=== PATIENT | female | born 1945 | race Caucasian/White ===

== ENCOUNTER → 2023-09-19 11:34 | Outpatient (REF) | payer MEDICARE, SELFPAY | LOC: HWRAD 11:34 | PROVIDERS: ATTENDING PHYSICIAN Student in an Organized Health Care Education/Training Program | DX: R05.3 Chronic cough (principal) | CPT/HCPCS: 70491; 71250; Q9967 ==

== ENCOUNTER 2023-09-27 08:01 | Day surgery (SDC) | payer MEDICARE, SELFPAY ==
[2023-09-27] VITALS (13 sets, daily range): BP systolic 111–139; BP diastolic 51–105; BMI 27.2
[2023-09-27] MEDS: NSS 500 IV (08:20)
[2023-09-27 08:41] LABS: Hematocrit 37.7 % (37.0-47.0); Hemoglobin 12.6 g/dL (12.0-16.0); Mean Corp Hgb Conc. 33.4 g/dL (33.0-37.0); Mean Corpuscular Hgb 29.2 pg (27.0-31.0); Mean Corpuscular Volume 87.5 fL (81.0-99.0); Mean Platelet Volume 9.3 fL (7.4-10.4); Platelet Count 263 10^3/uL (130-400); Red Blood Cell Count 4.31 10^6/uL (4.20-5.40); Red Cell Dist. Width 12.9 % (11.5-14.5); White Blood Cell Count 13.6 10^3/uL (4.8-10.8)
[2023-09-27 08:51] LABS: INR 1.02; PT 13.4 Sec (11.4-14.6)
[2023-09-27 08:52] LABS: APTT 30.5 Sec (23.4-35.0)
--- NOTE | 2023-09-27 09:00 | PTCARENOTE ---
Respiratory therapist at pt bedside to administer nebulizer.
[2023-09-27] MEDS: DUONEB 3 ML INH (09:03)
--- NOTE | 2023-09-27 09:07 | PTCARENOTE ---
Pt is here for an arteriogram. Pt recently had a laryngospasm when they previously attempted to do this arteriogram and procedure was cancelled. Pt's H&P states pt was to see an ENT for previous laryngospasm prior to having this procedure done. Pt
states she was not able to get in to see ENT until October so she did not see one yet. Pt states she did have some chest and neck studies done though. Dr Woodward evaluated pt today prior to procedure and ordered a nebulizer. Pt also states she started
a prednisone dose pack this morning. Dr Woodward aware and stated ok to proceed with today's procedure. Will continue to monitor.
[2023-09-27 09:11] LABS: Blood Urea Nitrogen 25 mg/dl (7-17); Calcium 10.2 mg/dl (8.4-10.2); Carbon Dioxide 23 mmol/L (22-30); Chloride 100 mmol/L (98-107); Estimated Creatinine Clearance 42 ml/min; Glucose 153 mg/dl (70-99); Potassium 4.2 mmol/L (3.5-5.1); Sodium 137 mmol/L (135-145); eGFR > 60.00
--- NOTE | 2023-09-27 09:40 | W.SUR.PREOP ---
Pre-Operative Surgical Note
-
I have examined this patient prior to the performance of the scheduled procedure.
The patient's condition is unchanged from the time of the current History and
Physical and the patient is able to undergo the scheduled procedure.
--- NOTE | 2023-09-27 11:15 | W.SUR.POST ---
Surgical Immediate Post Op
Note
Pre Op Diagnosis: PAD
Post Op Diagnosis: PAD
Procedure Performed: RLE angiogram, right SFA balloon angioplasty/stent 5mmx 4cm zilver PTX, left femoral perclose
Primary Surgeon: Bobby
Anesthesia: local and sedation
Estimated Blood Loss: <2cc
Fluids: see anesthesia flow sheet
Drains/Shunts: none
Specimens/Cultures: none
Doppler/Duplex/Angio (Y/N): Y
Complications: none
Operative Findings: successful stent placement
--- NOTE | 2023-09-27 11:20 | W.PV.INTER ---
[facility] Note
Pre Admission Note
Functional Status: Light Work
Ambulation: Ambulate with Assistance
Pre Op Medications
Pre Op ASA: Yes
Pre Op Statin: Yes
Pre Op TERRIE Inhibitor/ARB: No
Pre Op P2y12 Antagonist: None
Pre Op Beta Blockers: No
Pre Op Chronic Anticoagulant: None
Pre Op Cilostazol: No
Post Op Medications
Post Op ASA: Yes
Post Op Statin: Yes
Post Op TERRIE Inhibitor/ARB: No
Post Op P2y12 Antagonist: Clopidogrel
Post Op Beta Blockers: No
Post Op Chronic Anticoagulant: None
Post Op Cilostazol: No
--- NOTE | 2023-09-27 11:42 | OR.RPT ---
Operative Report
Operative Report
PROCEDURE DATE: 09/27/2023
Preoperative diagnosis: Severe debilitating right lower extremity claudication, refractory to exercise therapy.
Postoperative diagnosis: Same
Procedure:
1. Duplex assisted left common femoral artery cannulation.
2. Aortogram and pelvic angiogram.
3. Right lower extremity arteriogram with third order vessel catheterization of right popliteal artery via left common femoral artery puncture.
4. Placement of Zilver PTX 5 mm x 4 cm self expanding drug-eluting stent right distal superficial femoral artery.
5. Left femoral angiogram with Perclose percutaneous suture closure.
6. Supervision and interpretation.
Surgeon: Bobby
Training Facilitator: None
Complications: None
Anesthesia: Local, sedation
Fluoroscopy:
9.1 min
32 mGy
6.05 Gy.cm2
Indications for procedure:
Patient with debilitating claudication. Risk/benefit/alternative arteriography were discussed. Patient understood all wish to proceed.
Description of procedure:
Patient was identified, brought to the operating room. Placed on the table in the supine position. After the adequate administration of anesthesia, the patient was prepped and draped in the standard surgical fashion. A standard preoperative
timeout was undertaken and everybody was in agreement with the plan.
The left common femoral artery was accessed with a micropuncture kit under direct duplex ultrasound guidance. A 5 [place] sheath was then advanced over a 0.035 inch wire, and a woody's hook catheter was advanced into the abdominal aorta.
Aortogram and pelvic angiogram was obtained. Findings as follows:
Infrarenal aorta: Distal infrarenal aorta only visualized (more proximal not visualized), but patent with no significant stenosis.
Right common iliac artery: Patent with no significant stenosis.
Right external iliac artery: Patent with no significant stenosis.
Left common iliac artery: Patent with no significant stenosis
Left external iliac artery: Patent with no significant stenosis.
Using a floppy angled hydrophilic wire, the right common femoral artery was cannulated and the catheter was advanced. Right lower extremity arteriogram was obtained. Findings as follows:
Common femoral artery:Patent with no significant stenosis
Profunda femoris artery:Patent with no significant stenosis
Superficial femoral artery: Proximal two thirds patent with no significant stenosis, in the midsegment there was some luminal irregularities but no significant stenosis. Distal third with severe string-like near occlusive stenosis.
Popliteal artery: Some mild luminal irregularities in the distal above-knee popliteal artery, but otherwise the popliteal artery was patent with no significant stenosis.
Anterior tibial artery: Patent with no definitive stenosis. But distal filling flow.
Tibial peroneal trunk: Patent with no significant stenosis.
Peroneal artery: Patent with no significant stenosis.
Posterior tibial artery:Patent proximally, somewhat diminutive in size. Distal filling slow.
At this point I selectively cannulated the right profunda femoris artery and then exchanged for a Storq wire and then an up and over 6 [place] sheath. The patient was given 5000's of intravenous heparin. Next using a flopping of hydrophilic wire
and a CXI catheter, I was able to cannulate the superficial femoral artery under roadmap assisted guidance. Then again using roadmap assisted guidance was able to traverse the severe stenosis in the SFA distally. I then advanced my catheter and
wire into the popliteal artery. Angiogram confirmed I was in the true lumen. I then used a Cook Zilver PTX 5 mm x 4 cm drug-eluting stent. This was deployed across the area of severe stenosis. I then post angioplastied this with a 4 mm balloon.
Completion angiogram demonstrated excellent result with no residual stenosis. Good filling into the runoff. I could see better of the runoff now. There was still distal slow filling likely due to vasospasm in the foot or intrinsic foot disease.
The posterior tibial artery was very diminutive in size. But all 3 vessels appeared patent at least to the ankle.
At this point I then withdrew my sheath to the right common iliac artery and performed angiogram to confirm no stenosis in the iliac inflow. Next I withdrew my sheath to the left external iliac artery and performed a femoral angiogram on the left
side demonstrating good puncture in the left common femoral artery. I therefore then exchanged out over the wire my sheath for the [employer] Perclose percutaneous suture. This was then deployed in the standard fashion and the suture knot slip noted
down to the artery and tightened with a knot pusher. The knot was then locked. Hemostasis was achieved. In addition manual pressure was applied gently for 5 to 10 minutes. Complete hemostasis was noted.
The patient tolerated procedure well. Upon completion she had an easily palpable 2+ right posterior tibial artery pulse.
[2023-09-27] MEDS: PLAVIX 300 MG PO (12:05)
== END 2023-09-27 14:56 | disposition home or self-care (01) ==
LOC: CATH 08:01
PROVIDERS: ATTENDING PHYSICIAN Surgery Vascular Surgery; FAMILY PHYSICIAN Student in an Organized Health Care Education/Training Program; OTHER PHYSICIAN Internal Medicine Cardiovascular Disease
DX: I70.211 Atherosclerosis of native arteries of extremities with intermittent claudication, right leg (principal); Z72.0 Tobacco use; C91.10 Chronic lymphocytic leukemia of B-cell type not having achieved remission; J45.909 Unspecified asthma, uncomplicated
CPT/HCPCS: 37226; 37224; 75625; 75716; 76937; 80048; 85027; 85610; 85730; 86850; 86900; 86901; 94640; C1725; C1760; C1769; C1874; C1887; C1894; Q9967

== ENCOUNTER → 2023-11-02 14:05 | Outpatient (REF) | payer MEDICARE, SELFPAY | LOC: RAD 14:05 | PROVIDERS: ATTENDING PHYSICIAN Surgery Vascular Surgery | DX: I73.9 Peripheral vascular disease, unspecified (principal) | CPT/HCPCS: 93922; 93925 ==

== ENCOUNTER → 2023-11-15 08:11 | Outpatient (REF) | payer MEDICARE, SELFPAY ==
[2023-11-15 09:40] LABS: ALT (SGPT) 20 U/L (0-35); AST (SGOT) 26 U/L (14-36); Albumin 4.1 g/dl (3.5-5.0); Alkaline Phosphatase 89 U/L (38-126); Blood Urea Nitrogen 21 mg/dl (7-17); Calcium 9.7 mg/dl (8.4-10.2); Carbon Dioxide 27 mmol/L (22-30); Chloride 103 mmol/L (98-107); Glucose 107 mg/dl (70-99); HDL Cholesterol 58 mg/dl; LDL Cholesterol, Calculated 72 mg/dl; Potassium 4.4 mmol/L (3.5-5.1); Sodium 139 mmol/L (135-145); Total Bilirubin 0.3 mg/dl (0.2-1.3); Total Cholesterol 154 mg/dl (50-199); Total Protein 6.8 g/dl (6.3-8.2); Triglyceride 124 mg/dl (10-149); Very Low Density Lipoprotein 24 mg/dl (0-30); eGFR > 60.00
== END ==
LOC: REG 08:11
PROVIDERS: ATTENDING PHYSICIAN Student in an Organized Health Care Education/Training Program
DX: E78.2 Mixed hyperlipidemia (principal)
CPT/HCPCS: 36415; 80053; 80061

== ENCOUNTER → 2023-12-12 09:24 | Outpatient (REF) | payer MEDICARE, SELFPAY | LOC: RAD 09:24 | PROVIDERS: ATTENDING PHYSICIAN Student in an Organized Health Care Education/Training Program | DX: E04.1 Nontoxic single thyroid nodule (principal) | CPT/HCPCS: 76536 ==

== ENCOUNTER → 2023-12-13 07:16 | Outpatient (REF) | payer MEDICARE, SELFPAY ==
[2023-12-13 08:25] LABS: % Basophils 0.3 % (0-2); % Eosinophils 4.1 % (0-6); % Immature Granulocytes 0.1 % (0-0.5); % Lymphocytes 39.6 % (20.5-51.1); % Monocytes 7.6 % (1.7-9.3); % Neutrophils 48.3 % (42.2-75.2); Absolute Eosinophils 0.3 10^3/uL (0-0.7); Absolute Lymphocytes 2.9 10^3/uL (1.2-3.4); Absolute Monocytes 0.6 10^3/uL (0.1-0.6); Absolute Neutrophils 3.5 10^3/uL (1.4-6.5); Hematocrit 37.2 % (37.0-47.0); Hemoglobin 11.7 g/dL (12.0-16.0); Mean Corp Hgb Conc. 31.5 g/dL (33.0-37.0); Mean Corpuscular Hgb 27.8 pg (27.0-31.0); Mean Corpuscular Volume 88.4 fL (81.0-99.0); Mean Platelet Volume 9.4 fL (7.4-10.4); Nucleated Red Blood Cells % 0 %; Platelet Count 183 10^3/uL (130-400); Red Blood Cell Count 4.21 10^6/uL (4.20-5.40); Red Cell Dist. Width 13.3 % (11.5-14.5); White Blood Cell Count 7.3 10^3/uL (4.8-10.8)
[2023-12-13 09:47] LABS: LDH 190 U/L (120-246)
[2023-12-14 00:50] LABS: IgG 1143 mg/dl (700-1600)
== END ==
LOC: REG 07:16
PROVIDERS: ATTENDING PHYSICIAN Internal Medicine Hematology & Oncology
DX: C91.11 Chronic lymphocytic leukemia of B-cell type in remission (principal)
CPT/HCPCS: 36415; 82784; 83615; 85025

== ENCOUNTER → 2024-02-26 07:04 | Outpatient (REF) | payer MEDICARE, SELFPAY ==
[2024-02-26 08:52] LABS: % Basophils 0.4 % (0-2); % Eosinophils 3.1 % (0-6); % Immature Granulocytes 0.2 % (0-0.5); % Lymphocytes 36.4 % (20.5-51.1); % Monocytes 8.9 % (1.7-9.3); Absolute Eosinophils 0.3 10^3/uL (0-0.7); Absolute Monocytes 0.7 10^3/uL (0.1-0.6); Absolute Neutrophils 4.2 10^3/uL (1.4-6.5); Hematocrit 38.4 % (37.0-47.0); Hemoglobin 12.9 g/dL (12.0-16.0); Mean Corp Hgb Conc. 33.6 g/dL (33.0-37.0); Mean Corpuscular Hgb 28.5 pg (27.0-31.0); Mean Platelet Volume 9.8 fL (7.4-10.4); Nucleated Red Blood Cells % 0 %; Platelet Count 202 10^3/uL (130-400); Red Blood Cell Count 4.52 10^6/uL (4.20-5.40); Red Cell Dist. Width 14.3 % (11.5-14.5); White Blood Cell Count 8.2 10^3/uL (4.8-10.8)
[2024-02-26 09:32] LABS: Iron 76 ug/dl (37-170)
[2024-02-26 09:41] LABS: Percent Saturation 21 % (20-50); Total Iron Binding Capacity 359 ug/dl (265-497)
[2024-02-26 10:03] LABS: Ferritin 26.3 ng/ml (11.1-264.0)
[2024-02-26 10:34] LABS: Folate 15.8 ng/ml (2.76-20); Vitamin B12 686 pg/ml (239-931)
== END ==
LOC: REG 07:04
PROVIDERS: ATTENDING PHYSICIAN Internal Medicine Hematology & Oncology; FAMILY PHYSICIAN Student in an Organized Health Care Education/Training Program; REFERRING PHYSICIAN Physician Assistant
DX: C91.11 Chronic lymphocytic leukemia of B-cell type in remission (principal); D64.9 Anemia, unspecified
CPT/HCPCS: 36415; 82607; 82728; 82746; 83540; 83550; 85025

== ENCOUNTER → 2024-03-12 06:28 | Day surgery (SDC) | payer MEDICARE, SELFPAY | LOC: GI 06:28 | PROVIDERS: ATTENDING PHYSICIAN Internal Medicine | DX: K55.21 Angiodysplasia of colon with hemorrhage (principal); K57.30 Diverticulosis of large intestine without perforation or abscess without bleeding; D37.4 Neoplasm of uncertain behavior of colon; D12.8 Benign neoplasm of rectum; K62.1 Rectal polyp; K64.9 Unspecified hemorrhoids; D50.9 Iron deficiency anemia, unspecified; K29.80 Duodenitis without bleeding; K22.89 Other specified disease of esophagus; K44.9 Diaphragmatic hernia without obstruction or gangrene; K31.89 Other diseases of stomach and duodenum; K31.7 Polyp of stomach and duodenum | CPT/HCPCS: 45385; 45380; 43239; 88305; 88342 ==

== ENCOUNTER → 2024-05-14 07:55 | Outpatient (REF) | payer MEDICARE, SELFPAY | LOC: RAD 07:55 | PROVIDERS: ATTENDING PHYSICIAN Physician Assistant; FAMILY PHYSICIAN Student in an Organized Health Care Education/Training Program; REFERRING PHYSICIAN Surgery Vascular Surgery | DX: I73.9 Peripheral vascular disease, unspecified (principal) | CPT/HCPCS: 93922; 93925 ==

== ENCOUNTER → 2024-05-20 07:41 | Outpatient (REF) | payer MEDICARE, SELFPAY | LOC: WDC 07:41 | PROVIDERS: ATTENDING PHYSICIAN Obstetrics & Gynecology Gynecology | DX: Z12.31 Encounter for screening mammogram for malignant neoplasm of breast (principal) | CPT/HCPCS: 77063; 77067 ==

== ENCOUNTER 2024-05-23 06:20 | Day surgery (SDC) | payer MEDICARE, SELFPAY ==
[2024-05-23 11:18] VITALS: BMI 26.3
[2024-05-23 11:19] VITALS: BP 148/77
[2024-05-23 12:45] VITALS: BP 141/60
[2024-05-23 13:00] VITALS: BP 152/61
== END 2024-05-23 13:20 | disposition home or self-care (01) ==
LOC: SDS 06:20
PROVIDERS: ATTENDING PHYSICIAN Internal Medicine Gastroenterology
DX: C20 Malignant neoplasm of rectum (principal); D12.7 Benign neoplasm of rectosigmoid junction; K57.30 Diverticulosis of large intestine without perforation or abscess without bleeding; K64.0 First degree hemorrhoids
CPT/HCPCS: 45349; 88305

== ENCOUNTER → 2024-05-27 08:44 | Outpatient (REF) | payer MEDICARE, SELFPAY ==
[2024-05-27 10:07] LABS: % Basophils 0.2 % (0-2); % Eosinophils 3.4 % (0-6); % Immature Granulocytes 0.2 % (0-0.5); % Lymphocytes 41.5 % (20.5-51.1); % Monocytes 7.6 % (1.7-9.3); % Neutrophils 47.1 % (42.2-75.2); Absolute Eosinophils 0.3 10^3/uL (0-0.7); Absolute Lymphocytes 3.4 10^3/uL (1.2-3.4); Absolute Monocytes 0.6 10^3/uL (0.1-0.6); Absolute Neutrophils 3.9 10^3/uL (1.4-6.5); Hematocrit 36.6 % (37.0-47.0); Hemoglobin 11.8 g/dL (12.0-16.0); Mean Corp Hgb Conc. 32.2 g/dL (33.0-37.0); Mean Corpuscular Hgb 27.6 pg (27.0-31.0); Mean Corpuscular Volume 85.5 fL (81.0-99.0); Mean Platelet Volume 9.5 fL (7.4-10.4); Nucleated Red Blood Cells % 0 %; Platelet Count 196 10^3/uL (130-400); Red Blood Cell Count 4.28 10^6/uL (4.20-5.40); White Blood Cell Count 8.3 10^3/uL (4.8-10.8)
[2024-05-27 10:51] LABS: Iron 56 ug/dl (37-170)
[2024-05-27 11:02] LABS: Percent Saturation 17 % (20-50); Total Iron Binding Capacity 329 ug/dl (265-497)
== END ==
LOC: REG 08:44
PROVIDERS: ATTENDING PHYSICIAN Internal Medicine Hematology & Oncology; FAMILY PHYSICIAN Student in an Organized Health Care Education/Training Program
DX: C91.11 Chronic lymphocytic leukemia of B-cell type in remission (principal)
CPT/HCPCS: 36415; 83540; 83550; 85025

== ENCOUNTER → 2024-06-07 11:23 | Outpatient (REF) | payer MEDICARE, SELFPAY ==
[2024-06-07 13:54] LABS: CEA 1.58 ng/ml
== END ==
LOC: REG 11:23
PROVIDERS: ATTENDING PHYSICIAN Surgery; FAMILY PHYSICIAN Student in an Organized Health Care Education/Training Program
DX: C20 Malignant neoplasm of rectum (principal)
CPT/HCPCS: 36415; 82378

== ENCOUNTER → 2024-06-13 11:33 | Outpatient (REF) | payer OTHER, SELFPAY ==
[2024-06-13 14:04] LABS: ALT (SGPT) 25 U/L (0-35); AST (SGOT) 33 U/L (14-36); Albumin 4.6 g/dl (3.5-5.0); Alkaline Phosphatase 84 U/L (38-126); Blood Urea Nitrogen 19 mg/dl (7-17); Calcium 9.7 mg/dl (8.4-10.2); Carbon Dioxide 26 mmol/L (22-30); Chloride 98 mmol/L (98-107); Glucose 108 mg/dl (70-99); Potassium 4.6 mmol/L (3.5-5.1); Sodium 139 mmol/L (135-145); Total Bilirubin 0.4 mg/dl (0.2-1.3); Total Protein 7.5 g/dl (6.3-8.2); eGFR > 60.00
== END ==
LOC: REG 11:33
PROVIDERS: ATTENDING PHYSICIAN Surgery; FAMILY PHYSICIAN Student in an Organized Health Care Education/Training Program
DX: C20 Malignant neoplasm of rectum (principal)
CPT/HCPCS: 36415; 80053

== ENCOUNTER → 2024-06-14 10:05 | Outpatient (REF) | payer OTHER, SELFPAY | LOC: RAD 10:05 | PROVIDERS: ATTENDING PHYSICIAN Surgery; FAMILY PHYSICIAN Student in an Organized Health Care Education/Training Program | DX: C20 Malignant neoplasm of rectum (principal) | CPT/HCPCS: 71260; 74177; Q9967 ==

== ENCOUNTER → 2024-06-19 06:18 | Day surgery (SDC) | payer OTHER, SELFPAY | LOC: GI 06:18 | PROVIDERS: ATTENDING PHYSICIAN Surgery | DX: Z08 Encounter for follow-up examination after completed treatment for malignant neoplasm (principal); K62.89 Other specified diseases of anus and rectum; C20 Malignant neoplasm of rectum; Z85.048 Personal history of other malignant neoplasm of rectum, rectosigmoid junction, and anus | CPT/HCPCS: 45330 ==

== ENCOUNTER → 2024-06-25 10:04 | Outpatient (REF) | payer OTHER, SELFPAY | LOC: MRI 3T 10:04 | PROVIDERS: ATTENDING PHYSICIAN Surgery; FAMILY PHYSICIAN Student in an Organized Health Care Education/Training Program | DX: C20 Malignant neoplasm of rectum (principal) | CPT/HCPCS: 72197; A9575 ==

== ENCOUNTER 2024-07-19 08:43 | Outpatient (RCR) | payer OTHER, SELFPAY | END 2024-07-19 23:59 | disposition home or self-care (01) | LOC: CRHB 08:43 | PROVIDERS: ATTENDING PHYSICIAN Surgery Vascular Surgery; FAMILY PHYSICIAN Student in an Organized Health Care Education/Training Program | DX: I70.211 Atherosclerosis of native arteries of extremities with intermittent claudication, right leg (principal) | CPT/HCPCS: 93668 ==

== ENCOUNTER 2024-08-19 08:51 | Outpatient (RCR) | payer OTHER, SELFPAY | END 2024-08-19 23:59 | disposition home or self-care (01) | LOC: CRHB 08:51 | PROVIDERS: ATTENDING PHYSICIAN Surgery Vascular Surgery; FAMILY PHYSICIAN Student in an Organized Health Care Education/Training Program | DX: I70.211 Atherosclerosis of native arteries of extremities with intermittent claudication, right leg (principal) | CPT/HCPCS: 93668 ==

== ENCOUNTER → 2024-08-26 06:28 | Outpatient (REF) | payer OTHER, SELFPAY ==
[2024-08-26 07:25] LABS: % Basophils 0.3 % (0-2); % Eosinophils 3.5 % (0-6); % Immature Granulocytes 0.3 % (0-0.5); % Lymphocytes 37.5 % (20.5-51.1); % Monocytes 7.9 % (1.7-9.3); % Neutrophils 50.5 % (42.2-75.2); Absolute Eosinophils 0.3 10^3/uL (0-0.7); Absolute Lymphocytes 3.6 10^3/uL (1.2-3.4); Absolute Monocytes 0.8 10^3/uL (0.1-0.6); Absolute Neutrophils 4.9 10^3/uL (1.4-6.5); Hematocrit 41.6 % (37.0-47.0); Hemoglobin 13.8 g/dL (12.0-16.0); Iron 117 ug/dl (37-170); Mean Corp Hgb Conc. 33.2 g/dL (33.0-37.0); Mean Corpuscular Hgb 28.2 pg (27.0-31.0); Mean Corpuscular Volume 85.1 fL (81.0-99.0); Mean Platelet Volume 9.4 fL (7.4-10.4); Nucleated Red Blood Cells % 0 %; Platelet Count 193 10^3/uL (130-400); Red Blood Cell Count 4.89 10^6/uL (4.20-5.40); Red Cell Dist. Width 13.9 % (11.5-14.5); White Blood Cell Count 9.7 10^3/uL (4.8-10.8)
[2024-08-26 07:34] LABS: Percent Saturation 33 % (20-50); Total Iron Binding Capacity 351 ug/dl (265-497)
[2024-08-26 08:02] LABS: Ferritin 56.4 ng/ml (11.1-264.0)
== END ==
LOC: REG 06:28
PROVIDERS: ATTENDING PHYSICIAN Internal Medicine Hematology & Oncology; FAMILY PHYSICIAN Student in an Organized Health Care Education/Training Program
DX: C91.11 Chronic lymphocytic leukemia of B-cell type in remission (principal); R91.1 Solitary pulmonary nodule; D01.2 Carcinoma in situ of rectum
CPT/HCPCS: 36415; 82728; 83540; 83550; 85025

== ENCOUNTER 2024-09-20 08:59 | Outpatient (RCR) | payer OTHER, SELFPAY | END 2024-09-20 23:59 | disposition home or self-care (01) | LOC: CRHB 08:59 | PROVIDERS: ATTENDING PHYSICIAN Surgery Vascular Surgery; FAMILY PHYSICIAN Student in an Organized Health Care Education/Training Program | DX: I70.211 Atherosclerosis of native arteries of extremities with intermittent claudication, right leg (principal) | CPT/HCPCS: 93668 ==

== ENCOUNTER 2024-10-07 09:19 | Outpatient (RCR) | payer OTHER, SELFPAY | END 2024-10-07 23:59 | disposition home or self-care (01) | LOC: CRHB 09:19 | PROVIDERS: ATTENDING PHYSICIAN Surgery Vascular Surgery; FAMILY PHYSICIAN Student in an Organized Health Care Education/Training Program | DX: I70.211 Atherosclerosis of native arteries of extremities with intermittent claudication, right leg (principal) | CPT/HCPCS: 93668 ==

== ENCOUNTER → 2024-10-29 10:57 | Outpatient (REF) | payer OTHER, SELFPAY ==
[2024-10-29 13:13] LABS: CEA 2.18 ng/ml
== END ==
LOC: REG 10:57
PROVIDERS: ATTENDING PHYSICIAN Surgery; FAMILY PHYSICIAN Student in an Organized Health Care Education/Training Program
DX: C20 Malignant neoplasm of rectum (principal)
CPT/HCPCS: 36415; 82378

== ENCOUNTER 2024-11-20 06:16 | Day surgery (SDC) | payer OTHER, SELFPAY | END 2024-11-20 12:09 | disposition home or self-care (01) | LOC: GI 06:16 | PROVIDERS: ATTENDING PHYSICIAN Surgery | DX: Z08 Encounter for follow-up examination after completed treatment for malignant neoplasm (principal); Z85.048 Personal history of other malignant neoplasm of rectum, rectosigmoid junction, and anus | CPT/HCPCS: 45330 ==

== ENCOUNTER → 2024-11-27 08:27 | Outpatient (REF) | payer OTHER, SELFPAY | LOC: DHVS 08:27 | PROVIDERS: ATTENDING PHYSICIAN Surgery Vascular Surgery; FAMILY PHYSICIAN Student in an Organized Health Care Education/Training Program | DX: I73.9 Peripheral vascular disease, unspecified (principal) | CPT/HCPCS: 93922; 93925 ==

== ENCOUNTER → 2025-02-24 09:08 | Outpatient (REF) | payer OTHER, SELFPAY ==
[2025-02-24 09:58] LABS: Hematocrit 37.2 % (37.0-47.0); Hemoglobin 12.3 g/dL (12.0-16.0); Mean Corp Hgb Conc. 33.1 g/dL (33.0-37.0); Mean Corpuscular Volume 87.1 fL (81.0-99.0); Nucleated Red Blood Cells % 0 %; Platelet Count 162 10^3/uL (130-400); Red Cell Dist. Width 13.3 % (11.5-14.5)
[2025-02-24 11:17] LABS: LDH 214 U/L (120-246)
== END ==
LOC: REG 09:08
PROVIDERS: ATTENDING PHYSICIAN Internal Medicine Hematology & Oncology; FAMILY PHYSICIAN Student in an Organized Health Care Education/Training Program
DX: C91.11 Chronic lymphocytic leukemia of B-cell type in remission (principal); R91.1 Solitary pulmonary nodule; D01.2 Carcinoma in situ of rectum
CPT/HCPCS: 36415; 83615; 85025

== ENCOUNTER → 2025-03-19 11:45 | Outpatient (REF) | payer OTHER, SELFPAY | LOC: MRI 3T 11:45 | PROVIDERS: ATTENDING PHYSICIAN Surgery; FAMILY PHYSICIAN Student in an Organized Health Care Education/Training Program | DX: Z85.048 Personal history of other malignant neoplasm of rectum, rectosigmoid junction, and anus (principal) | CPT/HCPCS: 72197; A9575 ==

== ENCOUNTER → 2025-03-31 11:53 | Outpatient (REF) | payer OTHER, SELFPAY | LOC: RAD 11:53 | PROVIDERS: ATTENDING PHYSICIAN Physician Assistant; FAMILY PHYSICIAN Student in an Organized Health Care Education/Training Program | DX: I73.9 Peripheral vascular disease, unspecified (principal) | CPT/HCPCS: 93922; 93925 ==

== ENCOUNTER 2025-04-30 06:27 | Day surgery (SDC) | payer OTHER, SELFPAY | END 2025-04-30 07:55 | disposition home or self-care (01) | LOC: GI 06:27 | PROVIDERS: ATTENDING PHYSICIAN Internal Medicine | DX: Z12.11 Encounter for screening for malignant neoplasm of colon (principal); D12.0 Benign neoplasm of cecum; K55.20 Angiodysplasia of colon without hemorrhage; K57.30 Diverticulosis of large intestine without perforation or abscess without bleeding; K64.8 Other hemorrhoids; Z85.048 Personal history of other malignant neoplasm of rectum, rectosigmoid junction, and anus | CPT/HCPCS: 45385; 88305 ==

== ENCOUNTER → 2025-05-05 09:01 | Outpatient (REF) | payer OTHER, SELFPAY | LOC: RAD 09:01 | PROVIDERS: ATTENDING PHYSICIAN Internal Medicine; FAMILY PHYSICIAN Student in an Organized Health Care Education/Training Program | DX: R22.41 Localized swelling, mass and lump, right lower limb (principal) | CPT/HCPCS: 76882 ==

== ENCOUNTER → 2025-05-07 12:14 | Outpatient (REF) | payer OTHER, SELFPAY ==
[2025-05-07 13:35] LABS: Blood Urea Nitrogen 25 mg/dl (7-17); Calcium 9.6 mg/dl (8.4-10.2); Carbon Dioxide 26 mmol/L (22-30); Chloride 105 mmol/L (98-107); Glucose 103 mg/dl (70-99); Potassium 5.2 mmol/L (3.5-5.1); Sodium 136 mmol/L (135-145); eGFR > 60.00
== END ==
LOC: CLAB 12:14
PROVIDERS: ATTENDING PHYSICIAN Internal Medicine
DX: R22.41 Localized swelling, mass and lump, right lower limb (principal)
CPT/HCPCS: 36415; 80048

== ENCOUNTER → 2025-05-19 11:36 | Outpatient (REF) | payer OTHER, SELFPAY | LOC: MRI 3T 11:36 | PROVIDERS: ATTENDING PHYSICIAN Internal Medicine; FAMILY PHYSICIAN Student in an Organized Health Care Education/Training Program | DX: R22.41 Localized swelling, mass and lump, right lower limb (principal) | CPT/HCPCS: 73723 ==

== ENCOUNTER → 2025-05-27 08:32 | Outpatient (REF) | payer OTHER, SELFPAY | LOC: WDC 08:32 | PROVIDERS: ATTENDING PHYSICIAN Obstetrics & Gynecology Gynecology; FAMILY PHYSICIAN Student in an Organized Health Care Education/Training Program | DX: Z12.31 Encounter for screening mammogram for malignant neoplasm of breast (principal) | CPT/HCPCS: 77063; 77067 ==

== ENCOUNTER → 2025-06-05 12:19 | Outpatient (REF) | payer OTHER, SELFPAY ==
[2025-06-05 12:55] VITALS: BP 163/60; BP_SYST 56
[2025-06-05 14:01] VITALS: BP 170/60; BP_SYST 58
== END ==
LOC: RADI 12:19
PROVIDERS: ATTENDING PHYSICIAN Student in an Organized Health Care Education/Training Program
DX: D36.13 Benign neoplasm of peripheral nerves and autonomic nervous system of lower limb, including hip (principal)
CPT/HCPCS: 20206; 76942; 88305; 88333; 88334

== ENCOUNTER → 2025-07-25 08:16 | Outpatient (REF) | payer OTHER, SELFPAY | LOC: RAD 08:16 | PROVIDERS: ATTENDING PHYSICIAN Internal Medicine Rheumatology; FAMILY PHYSICIAN Student in an Organized Health Care Education/Training Program | DX: M81.0 Age-related osteoporosis without current pathological fracture (principal); M54.50 Low back pain, unspecified | CPT/HCPCS: 72052; 72070; 72100; 77080 ==